=== PATIENT | female | born 1945 | race Caucasian/White ===

== ENCOUNTER 2016-12-23 16:24 | Inpatient (IN) | payer OTHER ==
[~2016-12-23] VITALS: Ht 162.6 cm; Wt 82.5 kg
[~2016-12-23 16:24] MED LIST: ASPEC325 PO; CALC600T9 PO; GLUC15002 PO; HYDR12.55 PO; IBUP-1050 PO; LEVO125T4 PO; LOSA1TAB38 PO; LPT/20 PO; SERT50TA PO; SNQ/25 PO
[2016-12-23] MEDS ORDERED: SODIUM CHLORIDE 0.9% 1000ML 1,000 ML IV STA (16:53)
[2016-12-23] MEDS ORDERED: KETOROLAC TROMETHAMINE 30 MG/ML VIAL IV STA (16:53)
[2016-12-23] MEDS ORDERED: ONDANSETRON INJ 2 MG/ML 2 ML VIAL IV STA (16:53)
[2016-12-23] MEDS ORDERED: ACETAMINOPHEN 500 MG TAB PO STA (16:53)
[2016-12-23] MEDS ORDERED: HYDROmorphone INJ 1 MG/ML SYR IV STA (16:53)
--- NOTE | 2016-12-23 16:56 | EMERGENCY ROOM VISIT NOTE ---
History Report prepared by Vladislav: Kenya Bauer Under the Supervision of: Dr. Colin Hanna M.D. First contact with patient: 16:51 Chief Complaint: ABDOMINAL PAIN Stated Complaint: UPPER ABDOMINAL PAIN Nursing Triage Summary: PT C/O ABDOMINAL PAIN BILATERAL IN NATURE RADIATING INTO HER BACK SINCE LAST EVENING AT 2030. PT WENT TO PCP'S OFFICE FOR THE PAIN, REFERRED HERE FOR FURTHER EVAL. PT RATES PAIN 7/10, CONSISTENT IN NATURE. History of Present Illness The patient is a 71 year old female who presents to the Emergency Room with complaints of constant upper abdominal cramping beginning last night at 10: 30pm. She notes that her abdomen feels distended and the pain has radiated around to her back. She rates her pain as 7/10 in severity. The patient was referred to the ED by her PCP who she saw today. She denies any other symptoms at this time. Source of History: patient Onset: last 10:30 Position: abdomen (upper) Symptom Intensity: 7/10 Quality: cramping Timing: constant Associated Symptoms: + back pain Note: She denies any other symptoms at this time. Review of Systems See HPI for pertinent positives & negatives. A total of 10 systems reviewed and were otherwise negative. Past Medical & Surgical Medical Problems: (1) Hypertension Family History FH: heart disease Hypertension Social History Smoking Status: Never Smoker Smokeless Tobacco Use: No Alcohol Use: occasionally Marital Status: Housing Status: lives with significant other Occupation Status: retired Current/Historical Medications Scheduled Atorvastatin (Atorvastatin Calcium), 20 MG PO Q2D Calcium Carbonate-Vitamin D (Calcium + D), 1 TAB PO BID Doxepin (Sinequan), 50 MG PO HS Kzybgkvdhyl-Hdlpqajxcmi-Vuk C- (Glucosamine 1500 Complex), 1 CAP PO QAM Hydrochlorothiazide (Hydrochlorothiazide), 12.5 MG PO QAM Levothyroxine Sodium (Levothyroxine Sodium), 62.5 MG PO QAM Losartan Potassium (Cozaar), 100 MG PO QAM Sertraline (Zoloft), 50 MG PO HS Scheduled PRN Ibuprofen (Advil), 400-600 MG PO BID PRN for Pain Loratadine (Claritin), 10 MG PO DAILY PRN for ALLERGIC REACTION Triamcinolone Acetonide (Nasal (Nasacort Allergy 24Hr), 1 SPRAY CHUNG DAILY PRN for PRN Allergies Coded Allergies: Aspirin (Verified Allergy, Unknown, 12/23/16) Erythromycin (Verified Allergy, Unknown, AGITATED, 12/23/16) NSAIDs (Verified Allergy, Unknown, AGITATED, 12/23/16) Physical Exam Vital Signs Date Time Temp Pulse Resp B/P Pulse Ox O2 Delivery O2 Flow Rate FiO2 12/23/16 20:15 37.2 80 16 136/65 97 Room Air 12/23/16 18:52 75 16 137/72 99 Room Air 12/23/16 16:29 36.8 83 18 147/84 98 Room Air Physical Exam CONSTITUTIONAL: Mild painful distress. HEENT: No icterus, moist mucous membranes NECK: No meningismus, trachea is midline. CARDIOVASCULAR: Regular rate, normal perfusion RESPIRATORY: Unlabored breathing. Clear to auscultation. GASTROINTESTINAL: Mild epigastric tenderness. GENITOURINARY: No flank tenderness MUSCULOSKELETAL: Full range of motion NEUROLOGIC: No acute gross focal deficits. PSYCHIATRIC: Normal affect SKIN: Normal for ethnicity. Medical Decision & Procedures ER Provider Diagnostic Interpretation: X-ray results as stated below per my interpretation and radiologist interpretation. Other radiology results as stated below per my review and radiologist interpretation. ABDOMINAL ULTRASOUND, RIGHT UPPER QUADRANT HISTORY: epigastric pain radiating to back. COMPARISON: None. FINDINGS: Pancreas: The pancreatic duct is top normal in diameter measuring up to 3 mm. The body of the pancreas is within normal limits. The pancreatic head and temporal are obscured by overlying bowel gas. Liver: Slightly echogenic consistent with fatty change. Gallbladder: Multiple gallstones. The gallbladder wall is thickened up to 6 mm. Trace pericholecystic fluid. There appears to be a nonmobile stone within the neck of the gallbladder. These findings are consistent with acute cholecystitis. CBD: 6 mm. Right kidney: No hydronephrosis. IMPRESSION: 1. Gallbladder wall thickening with multiple gallstones. There appears to be an impacted stone within the neck of the gallbladder. These fibers are consistent with acute cholecystitis. 2. Mild hepatic steatosis. Electronically signed by: Pio Tomlin M.D. 12/23/2016 8:06 PM Dictated Date/Time: 12/23/2016 8:03 PM ABDOMEN AND PELVIS CT WITH IV AND ORAL CONTRAST CT DOSE: 565.16 mGy.cm HISTORY: Epigastric pain radiating to the back. TECHNIQUE: Multiaxial CT images of the abdomen and pelvis were performed following the use of intravenous and oral contrast. COMPARISON STUDY: Abdominal ultrasound 12/23/2016. FINDINGS: The lung bases are clear. A 1.5 cm diverticulum at the second portion of the duodenum. Tiny fat-containing umbilical hernia. Mild hepatic steatosis. The gallbladder is mildly distended. There is gallbladder wall thickening and trace pericholecystic fluid. There is also mild pericholecystic inflammatory change. There are multiple gallstones. These findings are consistent with acute cholecystitis. Normal caliber common bile duct. The pancreas, spleen, adrenal glands, and kidneys are unremarkable. No hydronephrosis. The bladder, uterus, and adnexa are unremarkable. Colonic diverticulosis. No bowel wall thickening or obstruction. Normal appendix. IMPRESSION: 1. Cholelithiasis with associated acute cholecystitis. 2. Colonic diverticulosis. 3. No bowel wall thickening or obstruction. 4. Mild hepatic steatosis. Electronically signed by: Pio Tomlin M.D. 12/23/2016 8:38 PM Dictated Date/Time: 12/23/2016 8:31 PM CHEST ONE VIEW PORTABLE HISTORY: epigastric pain COMPARISON: None. FINDINGS: There are low lung findings. Trace left pleural effusion. No evidence for pulmonary edema. Bibasilar interstitial thickening may be due to vascular crowding. No pneumothorax. The upper lung zones are clear. IMPRESSION: Trace left pleural effusion. Otherwise, no acute process within the chest. Electronically signed by: Pio Tomlin M.D. 12/23/2016 5:35 PM Dictated Date/Time: 12/23/2016 5:34 PM Laboratory Results 12/23/16 18:13 Red Blood Count 4.72, Mean Corpuscular Volume 90.3, Mean Corpuscular Hemoglobin 32.4, Mean Corpuscular Hemoglobin Concent 35.9, Mean Platelet Volume 9.3, Neutrophils (%) (Auto) 82.6, Lymphocytes (%) (Auto) 12.4, Monocytes (%) (Auto) 3.5, Eosinophils (%) (Auto) 0.9, Basophils (%) (Auto) 0.4, Neutrophils # (Auto) 9.44, Lymphocytes # (Auto) 1.42, Monocytes # (Auto) 0.40, Eosinophils # (Auto) 0.10, Basophils # (Auto) 0.04 12/23/16 18:13 Test 12/23/16 18:13 12/23/16 20:54 White Blood Count 11.42 K/uL (4.8-10.8) Red Blood Count 4.72 M/uL (4.2-5.4) Hemoglobin 15.3 g/dL (12.0-16.0) Hematocrit 42.6 % (37-47) Mean Corpuscular Volume 90.3 fL (80-100) Mean Corpuscular Hemoglobin 32.4 pg (25-34) Mean Corpuscular Hemoglobin Concent 35.9 g/dl (32-36) Platelet Count 211 K/uL (130-400) Mean Platelet Volume 9.3 fL (7.4-10.4) Neutrophils (%) (Auto) 82.6 % Lymphocytes (%) (Auto) 12.4 % Monocytes (%) (Auto) 3.5 % Eosinophils (%) (Auto) 0.9 % Basophils (%) (Auto) 0.4 % Neutrophils # (Auto) 9.44 K/uL (1.4-6.5) Lymphocytes # (Auto) 1.42 K/uL (1.2-3.4) Monocytes # (Auto) 0.40 K/uL (0.11-0.59) Eosinophils # (Auto) 0.10 K/uL (0-0.5) Basophils # (Auto) 0.04 K/uL (0-0.2) RDW Standard Deviation 41.3 fL (36.4-46.3) RDW Coefficient of Variation 12.4 % (11.5-14.5) Immature Granulocyte % (Auto) 0.2 % Immature Granulocyte # (Auto) 0.02 K/uL (0.00-0.02) Anion Gap 11.0 mmol/L (3-11) Est Creatinine Clear Calc Drug Dose 53.6 ml/min Estimated GFR () 65.6 Estimated GFR (Non- 56.6 BUN/Creatinine Ratio 15.6 (10-20) Calcium Level 8.9 mg/dl (8.5-10.1) Total Bilirubin 0.5 mg/dl (0.2-1) Direct Bilirubin 0.1 mg/dl (0-0.2) Aspartate Amino Transf (AST/SGOT) 20 U/L (15-37) Alanine Aminotransferase (ALT/SGPT) 29 U/L (12-78) Alkaline Phosphatase 58 U/L (45-117) Troponin I < 0.015 ng/ml (0-0.045) Total Protein 7.5 gm/dl (6.4-8.2) Albumin 3.9 gm/dl (3.4-5.0) Lipase 166 U/L (73-393) Labs reviewed by ED physician. Medications Administered Medications (Trade) Dose Ordered Sig/Cira Route Start Time Stop Time Status Last Admin Dose Admin Acetaminophen 1000 mg 1,000 mg NOW STAT PO 12/23/16 16:53 12/23/16 16:56 DC 12/23/16 17:58 1,000 MG Sodium Chloride (Nss 1000ml) 1,000 ml @ 0 mls/hr Q0M STAT IV 12/23/16 16:53 12/23/16 16:56 DC 12/23/16 16:53 0 MLS/HR ECG Indication: abdominal pain Rate (beats per minute): 79 Rhythm: normal sinus Findings: PAC, no ectopy, other (nonspecific St finding) ED Course 1651: Past medical records reviewed. The patient was evaluated in room C8. A complete history and physical examination was performed. 1652: Dilaudid Inj 1 mg IV, Zofran Inj 4 mg IV, Toradol Inj 15 mg IV, Sodium Chloride 1,000 ml @ 0 mls/hr Wide Open IV, Tylenol Tab 1,000 mg PO. 2029: Discussed the patient's case with Dr. Salazar - Surgery. The patient will be evaluated for further management. 2039: Zosyn Iv 4.5 gm IV. 2049: Discussed the patient's case with Ruthann WADDELL. The patient will be evaluated for further management. Medical Decision Differential diagnoses include but are not limited to; cholecystitis, pancreatitis, AAA, heart disease. 71-year-old presents into the emergency department complaining of 16 hours of upper abdominal pain radiating to her back without any other complaints. On exam she noted mild to moderate epigastric and right upper quadrant tenderness. Right upper quadrant ultrasound revealed multiple gallstones with likely stone at gallbladder neck with findings consistent for cholecystitis. She is comfortable reexamination. Admission arranged to medicine with surgical consultation, Dr. Day. Zosyn IV ordered. Consults Time Called: 2027 Consulting Physician: Dr. Salazar - Surgery Returned Call: [phone] Discussed the patient's case. The patient will be evaluated for further management. Additional Consults: Time Called: 2049 Consulted Physician: Ruthann WADDELL Returned Call: [phone] Additional Comments: Discussed the patient's case. The patient will be evaluated for further management. Impression Primary Impression: Cholecystitis Scribe Attestation The scribe's documentation has been prepared under my direction and personally reviewed by me in its entirety. I confirm that the note above accurately reflects all work, treatment, procedures, and medical decision making performed by me. Departure Information Dispostion Being Evaluated By Hospitalist Referrals Fernie Tejada III, M.D. (PCP)
[2016-12-23] MEDS ORDERED: OPTIRAY 320 IV PRN (17:15)
--- NOTE | 2016-12-23 17:36 | DIAGNOSTIC IMAGING REPORT ---
CHEST ONE VIEW PORTABLE HISTORY: epigastric pain COMPARISON: None. FINDINGS: There are low lung findings. Trace left pleural effusion. No evidence for pulmonary edema. Bibasilar interstitial thickening may be due to vascular crowding. No pneumothorax. The upper lung zones are clear. IMPRESSION: Trace left pleural effusion. Otherwise, no acute process within the chest. Electronically signed by: Pio Tomlin M.D. 12/23/2016 5:35 PM Dictated Date/Time: 12/23/2016 5:34 PM
[2016-12-23] MEDS ORDERED: TRIA1SPR4 NAE (18:21)
[2016-12-23] MEDS ORDERED: CLR10 PO (18:21)
[2016-12-23 18:32] LABS: BASO % 0.4 %; BASO ABS # 0.04 K/uL (0-0.2); COMPLETE YES; EOS % 0.9 %; HEMATOCRIT 42.6 % (37-47); IG% 0.2 %; LYMPH % 12.4 %; LYMPH ABS # 1.42 K/uL (1.2-3.4); MEAN CELL VOLUME 90.3 fL (80-100); MEAN CORPUSCULAR HEMOGLOBIN 32.4 pg (25-34); MEAN CORPUSCULAR HGB CONC 35.9 g/dl (32-36); MEAN PLATELET VOLUME 9.3 fL (7.4-10.4); MONO % 3.5 %; NEUT % 82.6 %; PLATELET COUNT 211 K/uL (130-400); RED BLOOD COUNT 4.72 M/uL (4.2-5.4); WHITE BLOOD COUNT 11.42 K/uL (4.8-10.8)
[2016-12-23 18:53] LABS: ALT/SGPT 29 U/L (12-78); BLOOD UREA NITROGEN 16 mg/dl (7-18); BUN/CREATININE RATIO 15.6 (10-20); CALCIUM 8.9 mg/dl (8.5-10.1); CARBON DIOXIDE 27 mmol/L (21-32); CHLORIDE 102 mmol/L (98-107); GLUCOSE 174 mg/dl (70-99); POTASSIUM 3.4 mmol/L (3.5-5.1); SODIUM 140 mmol/L (136-145)
[2016-12-23 18:58] LABS: ALKALINE PHOSPHATASE 58 U/L (45-117); AST/SGOT 20 U/L (15-37)
--- NOTE | 2016-12-23 20:07 | DIAGNOSTIC IMAGING REPORT ---
ABDOMINAL ULTRASOUND, RIGHT UPPER QUADRANT HISTORY: epigastric pain radiating to back. COMPARISON: None. FINDINGS: Pancreas: The pancreatic duct is top normal in diameter measuring up to 3 mm. The body of the pancreas is within normal limits. The pancreatic head and temporal are obscured by overlying bowel gas. Liver: Slightly echogenic consistent with fatty change. Gallbladder: Multiple gallstones. The gallbladder wall is thickened up to 6 mm. Trace pericholecystic fluid. There appears to be a nonmobile stone within the neck of the gallbladder. These findings are consistent with acute cholecystitis. CBD: 6 mm. Right kidney: No hydronephrosis. IMPRESSION: 1. Gallbladder wall thickening with multiple gallstones. There appears to be an impacted stone within the neck of the gallbladder. These fibers are consistent with acute cholecystitis. 2. Mild hepatic steatosis. Electronically signed by: Pio Tomlin M.D. 12/23/2016 8:06 PM Dictated Date/Time: 12/23/2016 8:03 PM
--- NOTE | 2016-12-23 20:39 | DIAGNOSTIC IMAGING REPORT ---
ABDOMEN AND PELVIS CT WITH IV AND ORAL CONTRAST CT DOSE: 565.16 mGy.cm HISTORY: Epigastric pain radiating to the back. TECHNIQUE: Multiaxial CT images of the abdomen and pelvis were performed following the use of intravenous and oral contrast. COMPARISON STUDY: Abdominal ultrasound 12/23/2016. FINDINGS: The lung bases are clear. A 1.5 cm diverticulum at the second portion of the duodenum. Tiny fat-containing umbilical hernia. Mild hepatic steatosis. The gallbladder is mildly distended. There is gallbladder wall thickening and trace pericholecystic fluid. There is also mild pericholecystic inflammatory change. There are multiple gallstones. These findings are consistent with acute cholecystitis. Normal caliber common bile duct. The pancreas, spleen, adrenal glands, and kidneys are unremarkable. No hydronephrosis. The bladder, uterus, and adnexa are unremarkable. Colonic diverticulosis. No bowel wall thickening or obstruction. Normal appendix. IMPRESSION: 1. Cholelithiasis with associated acute cholecystitis. 2. Colonic diverticulosis. 3. No bowel wall thickening or obstruction. 4. Mild hepatic steatosis. Electronically signed by: Pio Tomlin M.D. 12/23/2016 8:38 PM Dictated Date/Time: 12/23/2016 8:31 PM
[2016-12-23] MEDS ORDERED: PIPERACILLIN/TAZOBACTAM 4.5 GM/100ML D5W IV STA (20:40)
[2016-12-23] MEDS ORDERED: POTASSIUM CHLR 10 MEQ / WTR 10 MEQ in PREMIXED WATER 100 ML IV STA (21:11)
[2016-12-23 21:12] LABS: PROTHROMBIN TIME (PATIENT) 10.9 SECONDS (9.0-12.0)
[2016-12-23] MEDS ORDERED: OMEP20CA9 PO (21:18)
[2016-12-23] MEDS ORDERED: ACETAMINOPHEN 325 MG TAB PO PRN (21:30)
[2016-12-23] MEDS ORDERED: MoRPHine SULFATE 2 MG/ML CARP IV PRN ×3 (21:30)
[2016-12-23] MEDS ORDERED: ONDANSETRON INJ 2 MG/ML 2 ML VIAL IV PRN (21:30)
--- NOTE | 2016-12-23 21:39 | History and Physical ---
History & Physical Date & Time of Service: Dec 23, 2016 at 21:18 Chief Complaint: Upper Abdominal Pain Primary Care Physician: Fernie Tejada III, M.D. History of Present Illness Source: patient, clinic records This is a 71 year old female with PMH of HTN, dyslipidemia, hypothyroidism, CKD stage III, fibromyalgia, who was sent to the ED from Dr. Tejada's office for abdominal pain. Patient states yesterday she had soreness in her back during the day. Heat application did not help. Then at 10:30 pm yesterday she had sudden onset of abdominal pain. She describes cramping across the right and left upper quadrants with band like radiation to her back. She states pain was constant. She tried omeprazole with no relief. Patient was seen by Dr. Tejada in the afternoon and was sent to the ER. She last ate (cereal) at 8:30 am but had no appetite after that. Her mouth is feeling dry. Her pain was treated with acetaminophen in ER and is now controlled. She reports a normal BM this morning. he denies fevers, chills, cough, chest pain, SOB, nausea, vomiting, diarrhea, dysuria, frequency. No hx of abdominal surgery. Past Medical/Surgical History Medical Problems: (1) CKD (chronic kidney disease), stage III Status: Chronic (2) Fibromyalgia Status: Chronic (3) Hyperlipidemia Status: Chronic (4) Hypertension Status: Chronic (5) Hypothyroidism Status: Chronic Surgical Problems: (1) H/O laparoscopy Status: Chronic (2) History of rectal surgery Status: Chronic (3) S/P nasal surgery Status: Chronic Family History FH: heart disease Hypertension Social History Smoking Status: Never Smoker Alcohol Use: socially Drug Use: none Marital Status: Housing status: lives with significant other Occupational Status: retired Multi-Drug Resistant Organisms History of MDRO: No Allergies Coded Allergies: Aspirin (Verified Allergy, Unknown, 12/23/16) Erythromycin (Verified Allergy, Unknown, AGITATED, 12/23/16) NSAIDs (Verified Allergy, Unknown, AGITATED, 12/23/16) Home Medications Scheduled Atorvastatin (Atorvastatin Calcium), 20 MG PO Q2D Calcium Carbonate-Vitamin D (Calcium + D), 1 TAB PO BID Doxepin (Sinequan), 50 MG PO HS Hukutqfoiji-Zqdcgnzqsrj-Bnl C- (Glucosamine 1500 Complex), 1 CAP PO QAM Hydrochlorothiazide (Hydrochlorothiazide), 12.5 MG PO QAM Levothyroxine Sodium (Levothyroxine Sodium), 62.5 MG PO QAM Losartan Potassium (Cozaar), 100 MG PO QAM Sertraline (Zoloft), 50 MG PO HS Scheduled PRN Ibuprofen (Advil), 400-600 MG PO BID PRN for Pain Loratadine (Claritin), 10 MG PO DAILY PRN for ALLERGIC REACTION Omeprazole (Prilosec), 20 MG PO DAILY PRN for Dyspepsia Triamcinolone Acetonide (Nasal (Nasacort Allergy 24Hr), 2 SPRAY CHUNG DAILY PRN for Nasal Congestion Review of Systems Constitutional: No chills, No fever Eyes: No worsening of vision ENT: No nasal symptoms Respiratory: No cough Cardiovascular: No chest pain Abdomen: + pain, + problem reported (decreased appetite), No diarrhea, No nausea, No vomiting Musculoskeletal: + problem reported (back ache) Genitourinary - Female: No dysuria, No urinary frequency Neurologic: No problem reported (no dizziness) Psychiatric: No depression symptoms Physical Exam Vital Signs Date Time Temp Pulse Resp B/P Pulse Ox O2 Delivery O2 Flow Rate FiO2 12/23/16 20:15 37.2 80 16 136/65 97 Room Air 12/23/16 18:52 75 16 137/72 99 Room Air 12/23/16 16:29 36.8 83 18 147/84 98 Room Air General Appearance: no apparent distress, + obese, + pertinent finding ( pleasant alert 71 year old female, lying in bed) Head: normocephalic, atraumatic Eyes: normal inspection, PERRL, EOMI ENT: hearing grossly normal, pharynx normal Neck: supple, trachea midline Respiratory/Chest: lungs clear, normal breath sounds, no respiratory distress, no accessory muscle use Cardiovascular: regular rate, rhythm, no murmur Abdomen/GI: normal bowel sounds, soft, + pertinent finding (tender in RUQ, Nixon's sign positive) Extremities/Musculoskelatal: normal inspection, no pedal edema Neurologic/Psych: alert, normal mood/affect, oriented x 3, + pertinent finding (grossly nonfocal ) Skin: normal color, warm/dry Diagnostics Laboratory Results Results Past 24 Hours Test 12/23/16 18:13 12/23/16 20:54 Range/Units White Blood Count 11.42 4.8-10.8 K/uL Red Blood Count 4.72 4.2-5.4 M/uL Hemoglobin 15.3 12.0-16.0 g/dL Hematocrit 42.6 37-47 % Mean Corpuscular Volume 90.3 80-100 fL Mean Corpuscular Hemoglobin 32.4 25-34 pg Mean Corpuscular Hemoglobin Concent 35.9 32-36 g/dl Platelet Count 211 130-400 K/uL Mean Platelet Volume 9.3 7.4-10.4 fL Neutrophils (%) (Auto) 82.6 % Lymphocytes (%) (Auto) 12.4 % Monocytes (%) (Auto) 3.5 % Eosinophils (%) (Auto) 0.9 % Basophils (%) (Auto) 0.4 % Neutrophils # (Auto) 9.44 1.4-6.5 K/uL Lymphocytes # (Auto) 1.42 1.2-3.4 K/uL Monocytes # (Auto) 0.40 0.11-0.59 K/uL Eosinophils # (Auto) 0.10 0-0.5 K/uL Basophils # (Auto) 0.04 0-0.2 K/uL RDW Standard Deviation 41.3 36.4-46.3 fL RDW Coefficient of Variation 12.4 11.5-14.5 % Immature Granulocyte % (Auto) 0.2 % Immature Granulocyte # (Auto) 0.02 0.00-0.02 K/uL Sodium Level 140 136-145 mmol/L Potassium Level 3.4 3.5-5.1 mmol/L Chloride Level 102 98-107 mmol/L Carbon Dioxide Level 27 21-32 mmol/L Anion Gap 11.0 3-11 mmol/L Blood Urea Nitrogen 16 7-18 mg/dl Creatinine 1.00 0.60-1.20 mg/dl Est Creatinine Clear Calc Drug Dose 53.6 ml/min Estimated GFR () 65.6 Estimated GFR (Non- 56.6 BUN/Creatinine Ratio 15.6 10-20 Random Glucose 174 70-99 mg/dl Calcium Level 8.9 8.5-10.1 mg/dl Total Bilirubin 0.5 0.2-1 mg/dl Direct Bilirubin 0.1 0-0.2 mg/dl Aspartate Amino Transf (AST/SGOT) 20 15-37 U/L Alanine Aminotransferase (ALT/SGPT) 29 12-78 U/L Alkaline Phosphatase 58 45-117 U/L Troponin I < 0.015 0-0.045 ng/ml Total Protein 7.5 6.4-8.2 gm/dl Albumin 3.9 3.4-5.0 gm/dl Lipase 166 73-393 U/L Prothrombin Time 10.9 9.0-12.0 SECONDS Prothromb Time International Ratio 1.0 0.9-1.1 Activated Partial Thromboplast Time 25.0 21.0-31.0 SECONDS Partial Thromboplastin Ratio 1.0 Diagnostic Radiology ABDOMINAL ULTRASOUND, RIGHT UPPER QUADRANT HISTORY: epigastric pain radiating to back. COMPARISON: None. FINDINGS: Pancreas: The pancreatic duct is top normal in diameter measuring up to 3 mm. The body of the pancreas is within normal limits. The pancreatic head and temporal are obscured by overlying bowel gas. Liver: Slightly echogenic consistent with fatty change. Gallbladder: Multiple gallstones. The gallbladder wall is thickened up to 6 mm. Trace pericholecystic fluid. There appears to be a nonmobile stone within the neck of the gallbladder. These findings are consistent with acute cholecystitis. CBD: 6 mm. Right kidney: No hydronephrosis. IMPRESSION: 1. Gallbladder wall thickening with multiple gallstones. There appears to be an impacted stone within the neck of the gallbladder. These fibers are consistent with acute cholecystitis. ABDOMEN AND PELVIS CT WITH IV AND ORAL CONTRAST CT DOSE: 565.16 mGy.cm HISTORY: Epigastric pain radiating to the back. TECHNIQUE: Multiaxial CT images of the abdomen and pelvis were performed following the use of intravenous and oral contrast. COMPARISON STUDY: Abdominal ultrasound 12/23/2016. FINDINGS: The lung bases are clear. A 1.5 cm diverticulum at the second portion of the duodenum. Tiny fat-containing umbilical hernia. Mild hepatic steatosis. The gallbladder is mildly distended. There is gallbladder wall thickening and trace pericholecystic fluid. There is also mild pericholecystic inflammatory change. There are multiple gallstones. These findings are consistent with acute cholecystitis. Normal caliber common bile duct. The pancreas, spleen, adrenal glands, and kidneys are unremarkable. No hydronephrosis. The bladder, uterus, and adnexa are unremarkable. Colonic diverticulosis. No bowel wall thickening or obstruction. Normal appendix. IMPRESSION: 1. Cholelithiasis with associated acute cholecystitis. 2. Colonic diverticulosis. 3. No bowel wall thickening or obstruction. 4. Mild hepatic steatosis. CHEST ONE VIEW PORTABLE HISTORY: epigastric pain COMPARISON: None. FINDINGS: There are low lung findings. Trace left pleural effusion. No evidence for pulmonary edema. Bibasilar interstitial thickening may be due to vascular crowding. No pneumothorax. The upper lung zones are clear. IMPRESSION: Trace left pleural effusion. Otherwise, no acute process within the chest. EKG sinus rhythm with PACs, no ST or T wave abnormalities Impression Assessment and Plan ACUTE CHOLECYSTITIS WBC = 11.4; HD stable with no tachycardia or hypotension Gallbladder US shows acute cholecystitis with multiple gallstones with impacted stone in gallbladder neck CT a/p- Cholelithiasis with associated acute cholecystitis, Colonic diverticulosis, No bowel wall thickening or obstruction, Mild hepatic steatosis. Given dose of Zosyn in ER Will continue antibiotics with Cipro and Flagyl NPO except sips/ ice chips IV fluids Pain control with PRN acetaminophen, PRN morphine Consult general surgery- attending has discussed case with Dr. Salazar; patient will be seen tonight and plan for OR tomorrow HYPOKALEMIA Replace and monitor HYPERTENSION BP is stable Hold losartan and HCTZ Resume when taking PO postoperatively HYPERLIPIDEMIA Hold statin until resumes PO postoperatively HYPOTHYROIDISM Hold levothyroxine for now FIBROMYALGIA Hold PO meds for now CKD STAGE III Creatinine is stable Monitor renal function Avoid nephrotoxins DVT PROPHYLAXIS SCD's re procedure in am DISPOSITION Follows with Dr. Tejada for primary care Patient seen in collaboration with Dr. Pfeiffer. Please see her addendum. Patient will be followed by Dr. Nunez tomorrow. ATTENDING NOTE : pt seen and examined, care co ordinated with Ruthann Don PA-C 71 yo F presented with sudden onset of lower abdominal pain started last night , ongoing , constant with radiation to back no nausea symptoms no fever , no diarrhea seen by PCP today sent to ER for evaluation Gallbladder US shows acute cholecystitis with multiple gallstones with impacted stone in gallbladder neck CT a/p- Cholelithiasis with associated acute cholecystitis, Colonic diverticulosis, No bowel wall thickening or obstruction, Mild hepatic steatosis. P/E: gen : no apparent distress HEENT: sclera non icteric , PERRLA/EOMI HT; regular S1/S2 Lungs: CTA abdomen; soft , + Nixon's sign , bowel sound active Ext: no rash deformity Neuro: no focal deficit A/P : Acute cholecystitis : no evidence of sepsis , Images of abdomen as above mild leukocytosis, no fever NPO IVF , Empiric Abx with Cipro /Flagyl given dose of Zosyn in ED Surgery updated case D/w Dr Salazar -scheduled for Cholecystectomy tomorrow -possible laparoscopic Pt is medically stable for the procedure CKD stage 3 : cr at baseline IV fluids monitor PRP rest of the problem list as outlined by Ruthann Don PA-c VTE Prophylaxis VTE Risk Assessment Done? Y/N: Yes Risk Level: Moderate
[2016-12-23 22:00] VITALS: BP 154/85; PULSE 66; TEMP 36.8; O2SAT 99
[2016-12-23] MEDS: NSS + 20MEQ KCL 1000ML 1,000 ML IV SCH (22:30)
--- NOTE | 2016-12-23 22:59 | Pre-Operative Consultation ---
History General Date of Service: Dec 23, 2016. HPI HPI: The patient is a 71 year old female being seen for acute cholecystitis. She was admitted with complaints of constant upper abdominal cramping beginning last night at 10:30pm. She notes that her abdomen feels distended and the pain has radiated around to her back. She rates her pain as 7/10 in severity. No fever or chills. She has never had pain like this previously but it is mostly relieved at this point.. Historian: patient Procedure Urgency: Acute Risk Assessment Daily beta bria use?: No Problem List Medical Problems: (1) Cholecystitis Status: Acute Medical & Surgical History Past Medical History: high cholesterol, hypertension, hypothyroidism Past Surgical History: other (laparoscopic ovarian cystectomy) Family History Family History: no pertinent family hx Social History Hx Tobacco Use In Past Year?: No Smoking Status: Never Smoker Alcohol: occasionally Drug Use: none Marital status: Housing status: lives with significant other Occupation status: retired Allergies Allergies: Coded Allergies: Aspirin (Verified Allergy, Unknown, 12/23/16) Erythromycin (Verified Allergy, Unknown, AGITATED, 12/23/16) NSAIDs (Verified Allergy, Unknown, AGITATED, 12/23/16) Medications Current Inpatient Medications Current Inpatient Medications Medications (Trade) Dose Ordered Sig/Cira Route Start Time Stop Time Status Last Admin Dose Admin Ioversol (Optiray 320) 111 ml UD PRN IV 12/23/16 17:15 12/27/16 17:14 Acetaminophen (Tylenol Tab) 650 mg Q4H PRN PO 12/23/16 21:30 01/22/17 21:29 Ondansetron HCl 4 mg 4 mg Q6H PRN IV 12/23/16 21:30 01/22/17 21:29 Potassium Chloride/Sodium Chloride 1,000 ml @ 100 mls/hr Q10H IV 12/23/16 22:30 01/22/17 22:29 Ciprofloxacin/ Dextrose 400 mg/ Prmx 200 ml @ 100 mls/hr Q12H IV 12/24/16 00:00 01/03/17 00:00 Metronidazole/Prmx (Flagyl / Nss/ Premixed Nss) 100 ml @ 100 mls/hr Q8H IV 12/23/16 22:30 01/02/17 22:29 Morphine Sulfate (MoRPHine SULFATE INJ) 1 mg Q3HWA PRN IV 12/23/16 21:30 01/06/17 21:29 Morphine Sulfate 2 mg 2 mg Q3HWA PRN IV 12/23/16 21:30 01/06/17 21:29 Pantoprazole Sodium/Syringe (Protonix Inj/ Syringe) 10 ml @ 5 mls/min DAILY@11 IV 12/24/16 11:00 01/23/17 10:59 Review of Systems Review of Systems Constitutional: denies chills, denies diaphoresis, denies fever, denies weakness Eyes: reports: no symptoms ENT: reports: no symptoms reported Cardiovascular: denies: chest pain, chest pressure, chest tightness, palpitations, syncope Respiratory: denies: cough, short of breath, sputum production, stridor Gastrointestinal: abdominal pain, denies constipation, diarrhea, nausea, denies vomiting Genitourinary - Female: reports: no symptoms Musculoskeletal: back pain, denies joint pain, denies joint swelling, denies muscle pain Integumentary: denies change in color, denies change in hair/nails, denies dryness, denies lesions, denies lumps, denies rash Neurologic: reports: no symptoms Psychiatric: reports: no symptoms Endocrine: denies: cold intolerance, goiter, hair changes, heat intolerance, polyuria Hematologic / Lymphatic: denies: anemia, easy bleeding, easy bruising Allergic / Immunologic: denies: frequent infections Physical Exam Physical Exam General Appearance: + WD/WN, No distress Ears, Nose, Throat: + normal ENT inspection Neck: No lymphadenophy, No stiffness, No tenderness, No tracheal deviation Respiratory: No decreased breath sounds, No rales, No rhonchi, No stridor, No wheezing Cardiovascular: No bradycardia, No diastolic murmur, No gallop/S3, No gallop/S4 , No systolic murmur, No tachycardia Abdomen: + tenderness, No abnormal bowel sounds, No distension, No guarding, No hernia, No mass, No organomegaly, No rebound Extremities: No calf tenderness, No deformity, No edema, No inflammation, No swelling Neurologic/Psychiatric: No disorientation, No motor deficit/weakness, No sensory deficit Skin Characteristics: No diaphoresis, No jaundice, No pallor, No rash Lymphatic: No abnormal adenopathy Diagnostics Labs Labs Results Past 24 Hours Test 12/23/16 18:13 12/23/16 20:54 Range/Units White Blood Count 11.42 4.8-10.8 K/uL Red Blood Count 4.72 4.2-5.4 M/uL Hemoglobin 15.3 12.0-16.0 g/dL Hematocrit 42.6 37-47 % Mean Corpuscular Volume 90.3 80-100 fL Mean Corpuscular Hemoglobin 32.4 25-34 pg Mean Corpuscular Hemoglobin Concent 35.9 32-36 g/dl Platelet Count 211 130-400 K/uL Mean Platelet Volume 9.3 7.4-10.4 fL Neutrophils (%) (Auto) 82.6 % Lymphocytes (%) (Auto) 12.4 % Monocytes (%) (Auto) 3.5 % Eosinophils (%) (Auto) 0.9 % Basophils (%) (Auto) 0.4 % Neutrophils # (Auto) 9.44 1.4-6.5 K/uL Lymphocytes # (Auto) 1.42 1.2-3.4 K/uL Monocytes # (Auto) 0.40 0.11-0.59 K/uL Eosinophils # (Auto) 0.10 0-0.5 K/uL Basophils # (Auto) 0.04 0-0.2 K/uL RDW Standard Deviation 41.3 36.4-46.3 fL RDW Coefficient of Variation 12.4 11.5-14.5 % Immature Granulocyte % (Auto) 0.2 % Immature Granulocyte # (Auto) 0.02 0.00-0.02 K/uL Sodium Level 140 136-145 mmol/L Potassium Level 3.4 3.5-5.1 mmol/L Chloride Level 102 98-107 mmol/L Carbon Dioxide Level 27 21-32 mmol/L Anion Gap 11.0 3-11 mmol/L Blood Urea Nitrogen 16 7-18 mg/dl Creatinine 1.00 0.60-1.20 mg/dl Est Creatinine Clear Calc Drug Dose 53.6 ml/min Estimated GFR () 65.6 Estimated GFR (Non- 56.6 BUN/Creatinine Ratio 15.6 10-20 Random Glucose 174 70-99 mg/dl Calcium Level 8.9 8.5-10.1 mg/dl Total Bilirubin 0.5 0.2-1 mg/dl Direct Bilirubin 0.1 0-0.2 mg/dl Aspartate Amino Transf (AST/SGOT) 20 15-37 U/L Alanine Aminotransferase (ALT/SGPT) 29 12-78 U/L Alkaline Phosphatase 58 45-117 U/L Troponin I < 0.015 0-0.045 ng/ml Total Protein 7.5 6.4-8.2 gm/dl Albumin 3.9 3.4-5.0 gm/dl Lipase 166 73-393 U/L Prothrombin Time 10.9 9.0-12.0 SECONDS Prothromb Time International Ratio 1.0 0.9-1.1 Activated Partial Thromboplast Time 25.0 21.0-31.0 SECONDS Partial Thromboplastin Ratio 1.0 Lab Interpretation Lab Interpretation: labs were reviewed Diagnostic Radiology Diagnostic Radiology ABDOMINAL ULTRASOUND, RIGHT UPPER QUADRANT HISTORY: epigastric pain radiating to back. COMPARISON: None. FINDINGS: Pancreas: The pancreatic duct is top normal in diameter measuring up to 3 mm. The body of the pancreas is within normal limits. The pancreatic head and temporal are obscured by overlying bowel gas. Liver: Slightly echogenic consistent with fatty change. Gallbladder: Multiple gallstones. The gallbladder wall is thickened up to 6 mm. Trace pericholecystic fluid. There appears to be a nonmobile stone within the neck of the gallbladder. These findings are consistent with acute cholecystitis. CBD: 6 mm. Right kidney: No hydronephrosis. IMPRESSION: 1. Gallbladder wall thickening with multiple gallstones. There appears to be an impacted stone within the neck of the gallbladder. These fibers are consistent with acute cholecystitis. Impression Assessment and Plan Assessment and Plan Acute cholecystitis -IV abx -IVF -normal LFTs -medical clearance -to OR in AM
[2016-12-24] VITALS (8 sets, daily range): BP systolic 121–162; BP diastolic 68–83; PULSE 64–87; TEMP 36.5–36.8; O2SAT 92–98; Ht 162.6 cm; Wt 82.5 kg
[2016-12-24] MEDS: METRONIDAZOLE / NSS 500 MG in PREMIXED NSS 100 ML IV SCH ×4 (00:29→22:24)
[2016-12-24] MEDS: CIPROFLOXACIN / D5W 400 MG in PREMIXED IN D5W 200 ML IV SCH ×2 (00:38→11:14)
[2016-12-24] MEDS ORDERED: CEFAZOLIN 2000 MG/60 ML D5W 60 ML IV SCH (06:00)
--- NOTE | 2016-12-24 06:21 | Surgery Progress Note ---
Surgery Progress Note Date of Service Dec 24, 2016. Subjective + complaints (pain much improved), + diet (NPO), + feeling well, No nausea, No vomiting Objective Vital Signs: Date Time Temp Pulse Resp B/P Pulse Ox O2 Delivery O2 Flow Rate FiO2 12/24/16 00:30 Room Air 12/24/16 00:30 Room Air 12/23/16 22:00 36.8 66 18 154/85 99 Room Air 12/23/16 21:35 78 16 130/75 98 12/23/16 20:15 37.2 80 16 136/65 97 Room Air 12/23/16 18:52 75 16 137/72 99 Room Air 12/23/16 16:29 36.8 83 18 147/84 98 Room Air General Appearance: WD/WN, no apparent distress Head: normocephalic, atraumatic Neck: supple, trachea midline Respiratory/Chest: lungs clear Cardiovascular: regular rate, rhythm Abdomen: normal bowel sounds, non distended, soft, + tenderness (mild) Extremities: non-tender, no pedal edema Laboratory Results: Results Past 24 Hours Test 12/23/16 18:13 12/23/16 20:54 12/24/16 04:44 Range/Units White Blood Count 11.42 4.8-10.8 K/uL Red Blood Count 4.72 4.2-5.4 M/uL Hemoglobin 15.3 12.0-16.0 g/dL Hematocrit 42.6 37-47 % Mean Corpuscular Volume 90.3 80-100 fL Mean Corpuscular Hemoglobin 32.4 25-34 pg Mean Corpuscular Hemoglobin Concent 35.9 32-36 g/dl Platelet Count 211 130-400 K/uL Mean Platelet Volume 9.3 7.4-10.4 fL Neutrophils (%) (Auto) 82.6 % Lymphocytes (%) (Auto) 12.4 % Monocytes (%) (Auto) 3.5 % Eosinophils (%) (Auto) 0.9 % Basophils (%) (Auto) 0.4 % Neutrophils # (Auto) 9.44 1.4-6.5 K/uL Lymphocytes # (Auto) 1.42 1.2-3.4 K/uL Monocytes # (Auto) 0.40 0.11-0.59 K/uL Eosinophils # (Auto) 0.10 0-0.5 K/uL Basophils # (Auto) 0.04 0-0.2 K/uL RDW Standard Deviation 41.3 36.4-46.3 fL RDW Coefficient of Variation 12.4 11.5-14.5 % Immature Granulocyte % (Auto) 0.2 % Immature Granulocyte # (Auto) 0.02 0.00-0.02 K/uL Sodium Level 140 136-145 mmol/L Potassium Level 3.4 3.5-5.1 mmol/L Chloride Level 102 98-107 mmol/L Carbon Dioxide Level 27 21-32 mmol/L Anion Gap 11.0 3-11 mmol/L Blood Urea Nitrogen 16 7-18 mg/dl Creatinine 1.00 0.60-1.20 mg/dl Est Creatinine Clear Calc Drug Dose 53.6 ml/min Estimated GFR () 65.6 Estimated GFR (Non- 56.6 BUN/Creatinine Ratio 15.6 10-20 Random Glucose 174 70-99 mg/dl Calcium Level 8.9 8.5-10.1 mg/dl Total Bilirubin 0.5 0.2-1 mg/dl Direct Bilirubin 0.1 0-0.2 mg/dl Aspartate Amino Transf (AST/SGOT) 20 15-37 U/L Alanine Aminotransferase (ALT/SGPT) 29 12-78 U/L Alkaline Phosphatase 58 45-117 U/L Troponin I < 0.015 0-0.045 ng/ml Total Protein 7.5 6.4-8.2 gm/dl Albumin 3.9 3.4-5.0 gm/dl Lipase 166 73-393 U/L Prothrombin Time 10.9 9.0-12.0 SECONDS Prothromb Time International Ratio 1.0 0.9-1.1 Activated Partial Thromboplast Time 25.0 21.0-31.0 SECONDS Partial Thromboplastin Ratio 1.0 Assessment & Plan Acute cholecystitis -IV abx -medically cleared -erik boateng this AM -consent on chart/risks explained
[2016-12-24 08:12] LABS: HEMATOCRIT 37.3 % (37-47); MEAN CELL VOLUME 90.5 fL (80-100); MEAN CORPUSCULAR HEMOGLOBIN 31.3 pg (25-34); MEAN CORPUSCULAR HGB CONC 34.6 g/dl (32-36); MEAN PLATELET VOLUME 9.4 fL (7.4-10.4); PLATELET COUNT 192 K/uL (130-400); RED BLOOD COUNT 4.12 M/uL (4.2-5.4); WHITE BLOOD COUNT 6.86 K/uL (4.8-10.8)
[2016-12-24 08:41] LABS: BUN/CREATININE RATIO 12.6 (10-20); CALCIUM 8.3 mg/dl (8.5-10.1); CREATININE 0.9 mg/dl (0.60-1.20); POTASSIUM 3.9 mmol/L (3.5-5.1)
[2016-12-24] MEDS: NSS + 20MEQ KCL 1000ML 1,000 ML IV SCH ×2 (09:10→19:57)
[2016-12-24] MEDS ORDERED: PANTOprazole INJ 40 MG in SYRINGE 0 ML IV SCH (11:00)
[2016-12-24] MEDS ORDERED: PROPOFOL IV EMULSION 10 MG/ML 20 ML VIAL IV ONE (11:14)
[2016-12-24] MEDS ORDERED: ONDANSETRON INJ 2 MG/ML 2 ML VIAL ONE (11:14)
[2016-12-24] MEDS ORDERED: FENTANYL CITRATE INJ 50 MCG/1 ML 2 ML VIAL ONE (11:14)
[2016-12-24] MEDS ORDERED: MIDAZOLAM HCL 1 MG/ML 2ML VIAL ONE (11:14)
[2016-12-24] MEDS ORDERED: NEOSTIGMINE METHYLSULFATE 5 MG/5 ML SYR ONE (11:14)
[2016-12-24] MEDS ORDERED: LIDOCAINE HCL 2% 2 ML VIAL (20MG/ML) ONE (11:14)
[2016-12-24] MEDS ORDERED: GLYCOPYRROLATE INJ 0.2 MG/ML VIAL ONE (11:14)
[2016-12-24] MEDS ORDERED: ROCURONIUM BROMIDE 10 MG/ML 5 ML VIAL ONE (11:14)
[2016-12-24] MEDS ORDERED: DEXAMETHASONE SOD INJ 4 MG/ML VIAL ONE (11:14)
[2016-12-24] MEDS ORDERED: ATROPINE SULFATE 0.1 MG/ML 5ML SYR IV PRN (11:30)
[2016-12-24] MEDS ORDERED: EpHEDrine SULFATE INJ 50 MG/ML AMP IV PRN (11:30)
[2016-12-24] MEDS ORDERED: ONDANSETRON INJ 2 MG/ML 2 ML VIAL IV PRN ×2 (11:30→14:30)
[2016-12-24] MEDS ORDERED: PHENYLEPHRINE 100MCG/ML 5ML SYR IV PRN (11:30)
[2016-12-24] MEDS ORDERED: HYDROmorphone INJ 2 MG/ML SYR/VIAL IV PRN (11:30)
[2016-12-24] MEDS ORDERED: PHENYLEPHRINE 100MCG/ML 5ML SYR ONE (13:45)
[2016-12-24] MEDS ORDERED: BUPIVACAINE/EPINEPHRINE 0.5% MPF 1:200,000 30 ML VIAL INJ ONE (14:17)
--- NOTE | 2016-12-24 14:18 | [facility] Post Operative Brief Note ---
Immediate Operative Summary Operative Date Dec 24, 2016. Pre-Operative Diagnosis Acute cholecystitis Post-Operative Diagnosis Same as preoperative diagnosis Procedure(s) Performed Laparoscopic Cholecystectomy Surgeon Dr. Denny Salazar Classification Clerk Surgeon(s) None Estimated Blood Loss 20 mL Findings Acute inflammation Specimens Permanent specimens A: Gallbladder and contents Drains none Anesthesia GETA w/marcaine Complication(s) None Disposition Recovery Room / PACU
[2016-12-24] MEDS ORDERED: OXYCODONE/ACETAMINOPHEN 5-325 TAB PO PRN (14:30)
--- NOTE | 2016-12-24 14:36 | OPERATIVE REPORT ---
DATE OF OPERATION: 12/24/2016 PREOPERATIVE DIAGNOSIS: Acute cholecystitis. POSTOPERATIVE DIAGNOSIS: Same. PROCEDURE PERFORMED: Laparoscopic cholecystectomy. SURGEON: Dr. Denny Salazar. CON[employer]ODUCTS DISPATCHER: None. ANESTHESIA: General endotracheal with 0.5% Marcaine with epinephrine local. ESTIMATED BLOOD LOSS: 20 mL. DRAINS: None. COMPLICATIONS: None. SPECIMENS: Gallbladder sent to pathology. INDICATION FOR PROCEDURE: This is a 71-year-old female admitted to the ER yesterday with acute cholecystitis by ultrasound and white count. She was placed on IV antibiotics, was admitted to medicine, underwent workup to clear her for surgery and she presents today for laparoscopic cholecystectomy. We went over all the risks in detail including open procedure, common bile duct injury, retained common bile duct stone, postop bile leak, bleeding and wound problems. OPERATION AND FINDINGS: DESCRIPTION OF PROCEDURE: The patient was taken to the OR and underwent excellent general endotracheal anesthesia. Her abdomen was prepped and draped in normal sterile fashion. Transverse supraumbilical incision was made and dissection was taken down to identify anterior fascia. Two Vicryls were placed in either side of midline. The midline was incised. A Nila trocar was then inserted. Good pneumoperitoneum was achieved to 15 mmHg pressure. The patient was placed in head up and rolled to the left. An 11 subxiphoid and two 5 lateral ports were placed in normal fashion. Gallbladder was obviously inflamed. There were adhesions which were taken down with blunt and sharp dissection. Her duodenum was also stuck with adhesions up to the gallbladder. These were all taken down with sharp and blunt dissection. Once this was done, the neck was then grasped and retracted laterally after the fundus was grasped and retracted superiorly. The peritoneal attachments were taken down with alternating blunt and sharp dissection. The cystic duct and cystic artery were identified and skeletonized. There was also a posterior branch of the artery which was identified. Once the medial and lateral window was created showing these structures going straight to the gallbladder, 2 clips were placed proximally in the cystic artery, 1 distally on the cystic artery and cystic artery was transected. Three clips were then placed proximally in the cystic duct and 1 distally in the cystic duct and cystic duct was transected. Electrocautery hook was then used to remove the gallbladder from gallbladder fossa. The gallbladder had a large stone which was impacted in the neck. This was sent for pathologic evaluation. Pneumoperitoneum was reestablished. The abdomen was irrigated out and suctioned clear. There was about 20 mL of blood loss. There were some raw areas on the gallbladder fossa which were cauterized. These were all controlled prior to terminating the procedure. Her clips were well placed in the duct and the artery. Once this was ensured, the ports removed and pneumoperitoneum was decompressed. 0 Vicryl was used to close the fascial defects. 0.5% Marcaine with epinephrine local was used to create a local field block. A 0 Vicryl was used to close the skin and subQ with interrupted subcuticular sutures. Steri-Strips and benzoin were used to reinforce the incision. Sterile dressings were applied. The patient tolerated the procedure well without any complications, sent to postop recovery area for a period of observation and be sent to floor for the rest of her care. I attest to the content of the Intraoperative Record and any orders documented therein. Any exceptio ns are noted below.
--- NOTE | 2016-12-24 14:36 | Anesthesiology Progress Note ---
Anesthesia Post Op Note Date & Time Dec 24, 2016 at 14:36 Vital Signs Pain Intensity: 0.0 Vital Signs Past 12 Hours Date Time Temp Pulse Resp B/P Pulse Ox O2 Delivery O2 Flow Rate FiO2 12/24/16 07:54 Room Air 12/24/16 07:02 36.5 76 17 131/81 94 Notes Mental Status: alert / awake / arousable, participated in evaluation Pt Amnestic to Procedure: Yes Nausea / Vomiting: adequately controlled Pain: adequately controlled Airway Patency, RR, SpO2: stable & adequate BP & HR: stable & adequate Hydration State: stable & adequate Anesthetic Complications: no major complications apparent
[2016-12-24] MEDS ORDERED: MoRPHine SULFATE 4 MG/ML 1 ML CARP\\VIAL IV PRN (14:45)
[2016-12-24] MEDS: MoRPHine SULFATE 2 MG/ML CARP IV PRN ×2 (15:25→17:30)
--- NOTE | 2016-12-24 17:37 | Progress Note ---
Medicine Progress Note Date & Time of Visit: Dec 24, 2016 at 17:21. Subjective Patient seen and examined. Some post-operative pain, controlled with current pain regimen. Also notes some neck and back stiffness after surgery. Objective Last 8 Hrs Date Time Temp Pulse Resp B/P Pulse Ox O2 Delivery O2 Flow Rate FiO2 12/24/16 17:14 36.8 77 16 162/82 96 Nasal Cannula 2.0 12/24/16 15:44 36.6 70 17 148/83 98 Nasal Cannula 3.0 12/24/16 15:30 36.6 64 17 151/79 98 Nasal Cannula 3.0 12/24/16 15:00 36.6 71 16 160/83 99 Nasal Cannula 4 12/24/16 14:50 67 16 158/86 98 Mask 5 12/24/16 14:40 75 16 151/81 98 Mask 10 12/24/16 14:30 76 16 153/81 98 Mask 10 12/24/16 14:28 36.5 92 10 135/78 95 Mask 10 Physical Exam: General-awake; alert; NAD Eyes-EOMI; no scleral icterus Neck-no stridor; trachea midline Lungs-CTA bilaterally anteriorly Heart-RRR; no m/r/g Abdomen-soft; hypoactive BS; surgical site c/d/i Extremities-no c/c/e; no deformity Neuro-no gross focal deficits Laboratory Results: Last 24 Hours Test 12/23/16 18:13 12/23/16 20:54 12/24/16 06:54 White Blood Count 11.42 K/uL 6.86 K/uL Red Blood Count 4.72 M/uL 4.12 M/uL Hemoglobin 15.3 g/dL 12.9 g/dL Hematocrit 42.6 % 37.3 % Mean Corpuscular Volume 90.3 fL 90.5 fL Mean Corpuscular Hemoglobin 32.4 pg 31.3 pg Mean Corpuscular Hemoglobin Concent 35.9 g/dl 34.6 g/dl Platelet Count 211 K/uL 192 K/uL Mean Platelet Volume 9.3 fL 9.4 fL Neutrophils (%) (Auto) 82.6 % Lymphocytes (%) (Auto) 12.4 % Monocytes (%) (Auto) 3.5 % Eosinophils (%) (Auto) 0.9 % Basophils (%) (Auto) 0.4 % Neutrophils # (Auto) 9.44 K/uL Lymphocytes # (Auto) 1.42 K/uL Monocytes # (Auto) 0.40 K/uL Eosinophils # (Auto) 0.10 K/uL Basophils # (Auto) 0.04 K/uL RDW Standard Deviation 41.3 fL 41.5 fL RDW Coefficient of Variation 12.4 % 12.6 % Immature Granulocyte % (Auto) 0.2 % Immature Granulocyte # (Auto) 0.02 K/uL Sodium Level 140 mmol/L 145 mmol/L Potassium Level 3.4 mmol/L 3.9 mmol/L Chloride Level 102 mmol/L 108 mmol/L Carbon Dioxide Level 27 mmol/L 28 mmol/L Anion Gap 11.0 mmol/L 9.0 mmol/L Blood Urea Nitrogen 16 mg/dl 11 mg/dl Creatinine 1.00 mg/dl 0.90 mg/dl Est Creatinine Clear Calc Drug Dose 53.6 ml/min 59.6 ml/min Estimated GFR () 65.6 74.6 Estimated GFR (Non- 56.6 64.3 BUN/Creatinine Ratio 15.6 12.6 Random Glucose 174 mg/dl 88 mg/dl Calcium Level 8.9 mg/dl 8.3 mg/dl Total Bilirubin 0.5 mg/dl Direct Bilirubin 0.1 mg/dl Aspartate Amino Transf (AST/SGOT) 20 U/L Alanine Aminotransferase (ALT/SGPT) 29 U/L Alkaline Phosphatase 58 U/L Troponin I < 0.015 ng/ml Total Protein 7.5 gm/dl Albumin 3.9 gm/dl Lipase 166 U/L Prothrombin Time 10.9 SECONDS Prothromb Time International Ratio 1.0 Activated Partial Thromboplast Time 25.0 SECONDS Partial Thromboplastin Ratio 1.0 Magnesium Level 2.0 mg/dl Assessment & Plan ACUTE CHOLECYSTITIS Gallbladder US shows acute cholecystitis with multiple gallstones with impacted stone in gallbladder neck CT a/p- Cholelithiasis with associated acute cholecystitis, Colonic diverticulosis, No bowel wall thickening or obstruction, Mild hepatic steatosis. Given dose of Zosyn in ER Will continue antibiotics with Cipro and Flagyl. Will d/w surgery possibly discontinuing tomorrow. IV fluids Pain control with PRN acetaminophen, PRN morphine Consulted general surgery S/p laparoscopic cholecystectomy 12/24/16 HYPOKALEMIA Resolved HYPERTENSION BP is stable Hold HCTZ Resume losartan HYPERLIPIDEMIA Hold statin for now HYPOTHYROIDISM Resume levothyroxine FIBROMYALGIA Resume doxepin and sertraline CKD STAGE III Creatinine is stable Monitor renal function Avoid nephrotoxins DVT PROPHYLAXIS SCD's DISPOSITION Follows with Dr. Tejada for primary care Consultants: General surgery Procedures: Gallbladder ultrasound 1. Gallbladder wall thickening with multiple gallstones. There appears to be an impacted stone within the neck of the gallbladder. These fibers are consistent with acute cholecystitis. 2. Mild hepatic steatosis. CT a/p 1. Cholelithiasis with associated acute cholecystitis. 2. Colonic diverticulosis. 3. No bowel wall thickening or obstruction. 4. Mild hepatic steatosis. Current Inpatient Medications: Current Inpatient Medications Medications (Trade) Dose Ordered Sig/Cira Route Start Time Stop Time Status Last Admin Dose Admin Ioversol (Optiray 320) 111 ml UD PRN IV 12/23/16 17:15 12/27/16 17:14 Acetaminophen (Tylenol Tab) 650 mg Q4H PRN PO 12/23/16 21:30 01/22/17 21:29 Ondansetron HCl 4 mg 4 mg Q6H PRN IV 12/23/16 21:30 01/22/17 21:29 Potassium Chloride/Sodium Chloride 1,000 ml @ 100 mls/hr Q10H IV 12/23/16 22:30 01/22/17 22:29 12/24/16 09:10 100 MLS/HR Ciprofloxacin/ Dextrose 400 mg/ Prmx 200 ml @ 100 mls/hr Q12H IV 12/24/16 00:00 01/03/17 00:00 12/24/16 11:14 100 MLS/HR Metronidazole 500 mg/Prmx 100 ml @ 100 mls/hr Q8H IV 12/23/16 22:30 01/02/17 22:29 12/24/16 06:10 100 MLS/HR Pantoprazole Sodium/Syringe (Protonix Inj/ Syringe) 10 ml @ 5 mls/min DAILY@11 IV 12/24/16 11:00 01/23/17 10:59 12/24/16 11:14 5 MLS/MIN Morphine Sulfate (MoRPHine SULFATE INJ) 2 mg Q1H PRN IV 12/24/16 14:30 01/07/17 14:29 12/24/16 15:25 2 MG Ondansetron HCl (Zofran Inj) 4 mg Q6H PRN IV 12/24/16 14:30 01/23/17 14:29 Oxycodone/ Acetaminophen (Percocet 5-325mg Tab) @ Q4H PRN PO 12/24/16 14:30 01/07/17 14:29 Morphine Sulfate (MoRPHine SULFATE INJ) 4 mg Q1H PRN IV 12/24/16 14:45 01/07/17 14:44
[2016-12-24] MEDS: DOXEPIN HCL 50 MG CAP PO SCH (21:22)
[2016-12-24] MEDS: SERTRALINE HCL 50 MG TAB PO SCH (21:22)
[2016-12-25] VITALS (7 sets, daily range): BP systolic 106–143; BP diastolic 54–83; PULSE 64–81; TEMP 36.6–37; O2SAT 91–93
[2016-12-25] MEDS: CIPROFLOXACIN / D5W 400 MG in PREMIXED IN D5W 200 ML IV SCH ×3 (00:01→23:18)
[2016-12-25] MEDS: NSS + 20MEQ KCL 1000ML 1,000 ML IV SCH (05:00)
[2016-12-25] MEDS: METRONIDAZOLE / NSS 500 MG in PREMIXED NSS 100 ML IV SCH ×3 (06:00→21:48)
[2016-12-25] MEDS: LEVOTHYROXINE 125 MCG TAB PO SCH (06:00)
[2016-12-25 06:40] LABS: HEMATOCRIT 34.8 % (37-47); MEAN CELL VOLUME 91.6 fL (80-100); MEAN CORPUSCULAR HEMOGLOBIN 32.1 pg (25-34); MEAN CORPUSCULAR HGB CONC 35.1 g/dl (32-36); MEAN PLATELET VOLUME 9.6 fL (7.4-10.4); PLATELET COUNT 187 K/uL (130-400)
[2016-12-25 07:13] LABS: BUN/CREATININE RATIO 10.6 (10-20); CALCIUM 8.3 mg/dl (8.5-10.1); CREATININE 0.88 mg/dl (0.60-1.20); POTASSIUM 4.1 mmol/L (3.5-5.1)
[2016-12-25] MEDS: PANTOprazole SOD 40 MG TAB PO SCH (08:40)
[2016-12-25] MEDS: LOSARTAN POTASSIUM 50 MG TAB PO SCH (08:41)
[2016-12-25] MEDS ORDERED: LEVOTHYROXINE 125 MCG TAB PO SCH (09:00)
[2016-12-25] MEDS ORDERED: OXYC-57 PO (10:28)
--- NOTE | 2016-12-25 10:29 | Discharge Instructions ---
Discharge Instructions Admission Reason for Admission: Acute Cholecystitis Discharge Discharge Diagnosis / Problem: acute cholecystitis Discharge Goals Goal(s): Therapeutic intervention Activity Recommendations Activity Limitations: per Instructions/Follow-up section Lifting Limitations: no more than 25 pounds Exercise/Sports Limitations: until after follow-up appointment May Resume Sexual Activity: after follow-up appointment Shower/Bathe: tomorrow Driving or Machine Use: resume 3 days after discharge (as long as not taking narcotics) . Current Hospital Diet Patient's current hospital diet: Low Fiber Diet Discharge Diet Recommended Diet: Regular Diet Procedures Procedures Performed: Laparoscopic Cholecystectomy Pending Studies Studies pending at discharge: no Work Instructions Return To Work: after follow-up Lifting Limitations: no more than 20 pounds Medical Emergencies . Who to Call and When: Medical Emergencies: If at any time you feel your situation is an emergency, please call 911 immediately. . Non-Emergent Contact Non-Emergency issues call your: Primary Care Provider Call Non-Emergent contact if: temperature is above 101.5, your pain is worsening, your pain is concerning you, wound has increased pain . "Provider Documentation" section prepared by Denny Salazar. VTE Core Measure Inpt VTE Proph given/why not?: SCD's [place] Drug Monitoring Program Search Results: patient reviewed within database
--- NOTE | 2016-12-25 10:47 | Surgery Progress Note ---
Surgery Progress Note Date of Service Dec 25, 2016. Subjective Post OP Day: 1 + ambulating (not well), + complaints (flushing of face), + diet (not taken much yet), + feeling well, + pain controlled, No bowel movement, No flatus, No nausea, No vomiting Objective Vital Signs: Date Time Temp Pulse Resp B/P Pulse Ox O2 Delivery O2 Flow Rate FiO2 12/25/16 07:37 Room Air 12/25/16 06:53 36.6 64 16 121/70 91 Room Air 12/25/16 03:15 36.7 72 14 106/60 92 Room Air 12/25/16 00:00 93 Room Air 12/24/16 22:50 36.7 74 16 134/69 96 Nasal Cannula 1.0 12/24/16 20:30 36.8 77 16 121/68 92 Room Air 12/24/16 18:45 36.8 87 15 148/76 92 Room Air 12/24/16 17:14 36.8 77 16 162/82 96 Nasal Cannula 2.0 12/24/16 15:50 98 Nasal Cannula 3.0 12/24/16 15:50 98 Nasal Cannula 3.0 12/24/16 15:44 36.6 70 17 148/83 98 Nasal Cannula 3.0 12/24/16 15:30 36.6 64 17 151/79 98 Nasal Cannula 3.0 12/24/16 15:00 36.6 71 16 160/83 99 Nasal Cannula 4 12/24/16 14:50 67 16 158/86 98 Mask 5 12/24/16 14:40 75 16 151/81 98 Mask 10 12/24/16 14:30 76 16 153/81 98 Mask 10 12/24/16 14:28 36.5 92 10 135/78 95 Mask 10 General Appearance: WD/WN, no apparent distress Head: normocephalic, atraumatic Neck: supple, trachea midline Respiratory/Chest: lungs clear Cardiovascular: regular rate, rhythm Abdomen: soft, + distended, + tenderness (moderate post-op) Incision(s): dry, intact Extremities: non-tender, no pedal edema Laboratory Results: Results Past 24 Hours Test 12/25/16 06:15 Range/Units White Blood Count 10.60 4.8-10.8 K/uL Red Blood Count 3.80 4.2-5.4 M/uL Hemoglobin 12.2 12.0-16.0 g/dL Hematocrit 34.8 37-47 % Mean Corpuscular Volume 91.6 80-100 fL Mean Corpuscular Hemoglobin 32.1 25-34 pg Mean Corpuscular Hemoglobin Concent 35.1 32-36 g/dl RDW Standard Deviation 42.2 36.4-46.3 fL RDW Coefficient of Variation 12.6 11.5-14.5 % Platelet Count 187 130-400 K/uL Mean Platelet Volume 9.6 7.4-10.4 fL Sodium Level 143 136-145 mmol/L Potassium Level 4.1 3.5-5.1 mmol/L Chloride Level 109 98-107 mmol/L Carbon Dioxide Level 26 21-32 mmol/L Anion Gap 8.0 3-11 mmol/L Blood Urea Nitrogen 9 7-18 mg/dl Creatinine 0.88 0.60-1.20 mg/dl Est Creatinine Clear Calc Drug Dose 60.9 ml/min Estimated GFR () 76.6 Estimated GFR (Non- 66.1 BUN/Creatinine Ratio 10.6 10-20 Random Glucose 97 70-99 mg/dl Calcium Level 8.3 8.5-10.1 mg/dl Magnesium Level 2.0 1.8-2.4 mg/dl Assessment & Plan Acute cholecystitis -con't IV abx -slow to recover, needs to ambulate/take po better -H/H low likely dilutional and some OR loss -likely home in AM if does well today
--- NOTE | 2016-12-25 17:41 | Progress Note ---
Medicine Progress Note Date & Time of Visit: Dec 25, 2016 at 17:35. Subjective Patient seen and examined. Tolerating diet. Pain controlled. Ambulated hallway. Objective Last 8 Hrs Date Time Temp Pulse Resp B/P Pulse Ox O2 Delivery O2 Flow Rate FiO2 12/25/16 16:14 37.0 77 18 106/54 92 Room Air 12/25/16 16:01 92 Room Air 12/25/16 11:11 36.7 68 16 143/83 92 Room Air Physical Exam: General-awake; alert; NAD Eyes-EOMI; no scleral icterus Neck-no stridor; trachea midline Lungs-CTA bilaterally anteriorly Heart-RRR; no m/r/g Abdomen-soft; nBS; surgical site c/d/i Extremities-no c/c/e; no deformity Neuro-no gross focal deficits Laboratory Results: Last 24 Hours Test 12/25/16 06:15 White Blood Count 10.60 K/uL Red Blood Count 3.80 M/uL Hemoglobin 12.2 g/dL Hematocrit 34.8 % Mean Corpuscular Volume 91.6 fL Mean Corpuscular Hemoglobin 32.1 pg Mean Corpuscular Hemoglobin Concent 35.1 g/dl RDW Standard Deviation 42.2 fL RDW Coefficient of Variation 12.6 % Platelet Count 187 K/uL Mean Platelet Volume 9.6 fL Sodium Level 143 mmol/L Potassium Level 4.1 mmol/L Chloride Level 109 mmol/L Carbon Dioxide Level 26 mmol/L Anion Gap 8.0 mmol/L Blood Urea Nitrogen 9 mg/dl Creatinine 0.88 mg/dl Est Creatinine Clear Calc Drug Dose 60.9 ml/min Estimated GFR () 76.6 Estimated GFR (Non- 66.1 BUN/Creatinine Ratio 10.6 Random Glucose 97 mg/dl Calcium Level 8.3 mg/dl Magnesium Level 2.0 mg/dl Assessment & Plan ACUTE CHOLECYSTITIS Gallbladder US shows acute cholecystitis with multiple gallstones with impacted stone in gallbladder neck CT a/p- Cholelithiasis with associated acute cholecystitis, Colonic diverticulosis, No bowel wall thickening or obstruction, Mild hepatic steatosis. Given dose of Zosyn in ER Continue antibiotics with Cipro and Flagyl Pain control with PRN acetaminophen, PRN morphine Consulted general surgery S/p laparoscopic cholecystectomy 12/24/16 HYPOKALEMIA Resolved HYPERTENSION BP is stable Restart HCTZ tomorrow Resumed losartan HYPERLIPIDEMIA Resume statin HYPOTHYROIDISM Resumed levothyroxine FIBROMYALGIA Resumed doxepin and sertraline CKD STAGE III Creatinine is stable Monitor renal function Avoid nephrotoxins DVT PROPHYLAXIS SCD's DISPOSITION Follows with Dr. Tejada for primary care Anticipate discharge tomorrow. Consultants: General surgery Procedures: Gallbladder ultrasound 1. Gallbladder wall thickening with multiple gallstones. There appears to be an impacted stone within the neck of the gallbladder. These fibers are consistent with acute cholecystitis. 2. Mild hepatic steatosis. CT a/p 1. Cholelithiasis with associated acute cholecystitis. 2. Colonic diverticulosis. 3. No bowel wall thickening or obstruction. 4. Mild hepatic steatosis. Current Inpatient Medications: Current Inpatient Medications Medications (Trade) Dose Ordered Sig/Cira Route Start Time Stop Time Status Last Admin Dose Admin Ioversol (Optiray 320) 111 ml UD PRN IV 12/23/16 17:15 12/27/16 17:14 Acetaminophen 650 mg 650 mg Q4H PRN PO 12/23/16 21:30 01/22/17 21:29 12/25/16 05:00 650 MG Ciprofloxacin/ Dextrose 400 mg/ Prmx 200 ml @ 100 mls/hr Q12H IV 12/24/16 00:00 01/03/17 00:00 12/25/16 12:16 100 MLS/HR Metronidazole/Prmx (Flagyl / Nss/ Premixed Nss) 100 ml @ 100 mls/hr Q8H IV 12/23/16 22:30 01/02/17 22:29 12/25/16 14:10 100 MLS/HR Morphine Sulfate (MoRPHine SULFATE INJ) 2 mg Q1H PRN IV 12/24/16 14:30 01/07/17 14:29 12/24/16 17:30 2 MG Ondansetron HCl (Zofran Inj) 4 mg Q6H PRN IV 12/24/16 14:30 01/23/17 14:29 Oxycodone/ Acetaminophen (Percocet 5-325mg Tab) @ Q4H PRN PO 12/24/16 14:30 01/07/17 14:29 Morphine Sulfate (MoRPHine SULFATE INJ) 4 mg Q1H PRN IV 12/24/16 14:45 01/07/17 14:44 Doxepin HCl (Sinequan Cap) 50 mg HS PO 12/24/16 21:00 01/23/17 20:59 12/24/16 21:22 50 MG Losartan Potassium (coZAAR TAB) 100 mg QAM PO 12/25/16 09:00 01/24/17 08:59 12/25/16 08:41 100 MG Sertraline HCl (Zoloft Tab) 50 mg HS PO 12/24/16 21:00 01/23/17 20:59 12/24/16 21:22 50 MG Levothyroxine Sodium (Synthroid Tab) 62.5 mcg DAILYBB PO 12/25/16 06:00 01/24/17 05:59 12/25/16 06:00 62.5 MCG Pantoprazole Sodium (Protonix Tab) 40 mg QAM PO 12/25/16 09:30 01/24/17 09:29 12/25/16 08:40 40 MG
[2016-12-25] MEDS ORDERED: ATORVASTATIN 20 MG TAB PO SCH (17:45)
[2016-12-25] MEDS: SERTRALINE HCL 50 MG TAB PO SCH (20:38)
[2016-12-25] MEDS: DOXEPIN HCL 50 MG CAP PO SCH (20:38)
--- NOTE | 2016-12-26 05:26 | Surgery Progress Note ---
Surgery Progress Note Date of Service Dec 26, 2016. Subjective Post OP Day: 2 + diet (regular), + feeling well, + flatus, + pain controlled, No nausea, No vomiting Objective Vital Signs: Date Time Temp Pulse Resp B/P Pulse Ox O2 Delivery O2 Flow Rate FiO2 12/25/16 23:15 Room Air 12/25/16 22:52 36.7 81 16 138/70 91 Room Air 12/25/16 16:14 37.0 77 18 106/54 92 Room Air 12/25/16 16:01 92 Room Air 12/25/16 11:11 36.7 68 16 143/83 92 Room Air 12/25/16 07:37 Room Air 12/25/16 06:53 36.6 64 16 121/70 91 Room Air General Appearance: WD/WN, no apparent distress Head: normocephalic, atraumatic Neck: supple, trachea midline Abdomen: normal bowel sounds, non distended, soft, + tenderness Incision(s): dry, intact Extremities: non-tender, no pedal edema Laboratory Results: Results Past 24 Hours Test 12/25/16 06:15 12/26/16 04:44 Range/Units White Blood Count 10.60 4.8-10.8 K/uL Red Blood Count 3.80 4.2-5.4 M/uL Hemoglobin 12.2 12.0-16.0 g/dL Hematocrit 34.8 37-47 % Mean Corpuscular Volume 91.6 80-100 fL Mean Corpuscular Hemoglobin 32.1 25-34 pg Mean Corpuscular Hemoglobin Concent 35.1 32-36 g/dl RDW Standard Deviation 42.2 36.4-46.3 fL RDW Coefficient of Variation 12.6 11.5-14.5 % Platelet Count 187 130-400 K/uL Mean Platelet Volume 9.6 7.4-10.4 fL Sodium Level 143 136-145 mmol/L Potassium Level 4.1 3.5-5.1 mmol/L Chloride Level 109 98-107 mmol/L Carbon Dioxide Level 26 21-32 mmol/L Anion Gap 8.0 3-11 mmol/L Blood Urea Nitrogen 9 7-18 mg/dl Creatinine 0.88 0.60-1.20 mg/dl Est Creatinine Clear Calc Drug Dose 60.9 ml/min Estimated GFR () 76.6 Estimated GFR (Non- 66.1 BUN/Creatinine Ratio 10.6 10-20 Random Glucose 97 70-99 mg/dl Calcium Level 8.3 8.5-10.1 mg/dl Magnesium Level 2.0 1.8-2.4 mg/dl Assessment & Plan Acute cholecystitis -victor hugo need for po abx at home -doing better this AM -home today if medically ready -instructions and Rx on chart
[2016-12-26] MEDS: METRONIDAZOLE / NSS 500 MG in PREMIXED NSS 100 ML IV SCH (05:50)
[2016-12-26] MEDS: LEVOTHYROXINE 125 MCG TAB PO SCH (05:51)
[2016-12-26 06:42] LABS: HEMATOCRIT 34.1 % (37-47); MEAN CELL VOLUME 92.4 fL (80-100); MEAN CORPUSCULAR HEMOGLOBIN 31.4 pg (25-34); MEAN PLATELET VOLUME 9.3 fL (7.4-10.4); PLATELET COUNT 163 K/uL (130-400); RED BLOOD COUNT 3.69 M/uL (4.2-5.4); WHITE BLOOD COUNT 7.48 K/uL (4.8-10.8)
[2016-12-26 06:59] LABS: BUN/CREATININE RATIO 12.7 (10-20); CALCIUM 8.1 mg/dl (8.5-10.1); POTASSIUM 3.8 mmol/L (3.5-5.1)
[2016-12-26 07:29] VITALS: BP 132/74; PULSE 75; TEMP 36.8; O2SAT 90
[2016-12-26] MEDS: LOSARTAN POTASSIUM 50 MG TAB PO SCH (08:38)
[2016-12-26] MEDS ORDERED: HYDROCHLOROTHIAZIDE 25 MG TAB PO SCH (09:00)
[2016-12-26] MEDS: PANTOprazole SOD 40 MG TAB PO SCH (09:24)
[2016-12-26 10:09] VITALS: BP 132/74; PULSE 75; TEMP 36.8; O2SAT 90
--- NOTE | 2016-12-26 19:52 | Discharge Summary ---
Discharge Summary Admission Date: Dec 23, 2016 at 21:16 Discharge Date: Dec 26, 2016 Discharge Disposition: Home Principal Diagnosis: Acute cholecystitis s/p cholecystectomy Procedures: Gallbladder ultrasound 1. Gallbladder wall thickening with multiple gallstones. There appears to be an impacted stone within the neck of the gallbladder. These fibers are consistent with acute cholecystitis. 2. Mild hepatic steatosis. CT a/p 1. Cholelithiasis with associated acute cholecystitis. 2. Colonic diverticulosis. 3. No bowel wall thickening or obstruction. 4. Mild hepatic steatosis. Consultations: General surgery Medication Reconciliation New Medications: Oxycodone/Acetaminophen 5MG/325MG (Percocet 5MG/325MG) Tab 1 TABLET PO Q6H PRN for Pain, #30 TAB Continued Medications: Atorvastatin (Atorvastatin Calcium) 20 Mg Tab 20 MG PO Q2D Calcium Carbonate-Vitamin D (Calcium + D) 1 Tab Tab 1 TAB PO BID Doxepin (Sinequan) 25 Mg Cap 50 MG PO HS, CAP Xihcpqflmcs-Kwwvjajssrb-Sos C- (Glucosamine 1500 Complex) 1 Cap Cap 1 CAP PO QAM Hydrochlorothiazide (Hydrochlorothiazide) 12.5 Mg Tab 12.5 MG PO QAM Levothyroxine Sodium (Levothyroxine Sodium) 125 Mcg Tab 62.5 MG PO QAM Loratadine (Claritin) 10 Mg Tab 10 MG PO DAILY PRN for ALLERGIC REACTION, TAB Losartan Potassium (Cozaar) 100 Mg Tab 100 MG PO QAM, TAB Omeprazole (Prilosec) 20 Mg Cap 20 MG PO DAILY PRN for Dyspepsia, CAP Sertraline (Zoloft) 50 Mg Tab 50 MG PO HS, TAB Triamcinolone Acetonide (Nasal (Nasacort Allergy 24Hr) 55 Mcg/Act Spr 2 SPRAY CHUNG DAILY PRN for Nasal Congestion Discontinued Medications: Ibuprofen (Advil) 200 Mg Tab 400-600 MG PO BID PRN for Pain, TAB Admission Information HPI (per Admitting provider): This is a 71 year old female with PMH of HTN, dyslipidemia, hypothyroidism, CKD stage III, fibromyalgia, who was sent to the ED from Dr. Tejada's office for abdominal pain. Patient states yesterday she had soreness in her back during the day. Heat application did not help. Then at 10:30 pm yesterday she had sudden onset of abdominal pain. She describes cramping across the right and left upper quadrants with band like radiation to her back. She states pain was constant. She tried omeprazole with no relief. Patient was seen by Dr. Tejada in the afternoon and was sent to the ER. She last ate (cereal) at 8:30 am but had no appetite after that. Her mouth is feeling dry. Her pain was treated with acetaminophen in ER and is now controlled. She reports a normal BM this morning. he denies fevers, chills, cough, chest pain, SOB, nausea, vomiting, diarrhea, dysuria, frequency. No hx of abdominal surgery. Physical Exam (per Admitting): General Appearance: no apparent distress, + obese, + pertinent finding ( pleasant alert 71 year old female, lying in bed) Head: normocephalic, atraumatic Eyes: normal inspection, PERRL, EOMI ENT: hearing grossly normal, pharynx normal Neck: supple, trachea midline Respiratory/Chest: lungs clear, normal breath sounds, no respiratory distress, no accessory muscle use Cardiovascular: regular rate, rhythm, no murmur Abdomen/GI: normal bowel sounds, soft, + pertinent finding (tender in RUQ, Nixon's sign positive) Extremities/Musculoskelatal: normal inspection, no pedal edema Neurologic/Psych: alert, normal mood/affect, oriented x 3, + pertinent finding (grossly nonfocal ) Skin: normal color, warm/dry Hospital Course Patient was admitted with acute cholecystitis, confirmed with imaging. General surgery was consulted. Patient received IV ciprofloxacin and metronidazole. Patient underwent laparoscopic cholecystectomy on 12/24/16. Patient tolerated surgery well without complications. Patient was continued on her home medications. Patient deemed stable for discharge with Family Medicine follow up. PE on discharge: General- awake; alert; NAD Eyes- EOMI; no scleral icterus Neck- no stridor; trachea midline Lungs- CTA bilaterally; no wheezes/crackles Heart- RRR; no m/r/g Abdomen- soft; mildly tender around surgical incision sites; surgical incision sites with steri strips c/d/i; nBS Back- no gross abnormalities Extremities- no c/c/e; no deformity Neuro- no gross focal deficits Skin- no appreciable rash . Total time spent on discharge = This includes examination of the patient, discharge planning, medication reconciliation, and communication with other providers. Discharge Instructions Discharge Instructions Admission Reason for Admission: Acute Cholecystitis Discharge Discharge Diagnosis / Problem: acute cholecystitis Discharge Goals Goal(s): Therapeutic intervention Activity Recommendations Activity Limitations: per Instructions/Follow-up section Lifting Limitations: no more than 25 pounds Exercise/Sports Limitations: until after follow-up appointment May Resume Sexual Activity: after follow-up appointment Shower/Bathe: tomorrow Driving or Machine Use: resume 3 days after discharge (as long as not taking narcotics) . Current Hospital Diet Patient's current hospital diet: Low Fiber Diet Discharge Diet Recommended Diet: Regular Diet Procedures Procedures Performed: Laparoscopic Cholecystectomy Pending Studies Studies pending at discharge: no Work Instructions Return To Work: after follow-up Lifting Limitations: no more than 20 pounds Medical Emergencies . Who to Call and When: Medical Emergencies: If at any time you feel your situation is an emergency, please call 911 immediately. . Non-Emergent Contact Non-Emergency issues call your: Primary Care Provider Call Non-Emergent contact if: temperature is above 101.5, your pain is worsening, your pain is concerning you, wound has increased pain . "Provider Documentation" section prepared by Denny Salazar. VTE Core Measure Inpt VTE Proph given/why not?: [facility] [place] Drug Monitoring Program Search Results: patient reviewed within database <Electronically signed by Denny Salazar M.D.> Signed: 12/25/16 1029 Signed: The status of this report is Signed * If report status is Draft, the document has not been finalized by the responsible provider. Addendum: 12/26/16 1005 Addendum: Lian Nunez MD on 12/26/16 @ 10:04 Discharge Inst - Addendum Addendum Notes: Please follow up with Family Medicine Dr. Tejada on December 28 at 1:50pm. Additional Copies To Fernie Tejada III, M.D.
[2016-12-27] MEDS ORDERED: ATORVASTATIN 20 MG TAB PO SCH (18:00)
== END 2016-12-26 11:34 | disposition home or self-care (01) | DRG 419 ==
LOC: ENRESERVTM → ENRESERVDT → C.EDB 16:25 → C.MSN 21:16
PROVIDERS: ADMIT Hospitalist; ATTEND Internal Medicine
PROC: 0FT44ZZ Resection of Gallbladder, Percutaneous Endoscopic Approach (ICD-10-PCS; principal; 2016-12-24 12:00)
DX: K80.01 Calculus of gallbladder with acute cholecystitis with obstruction (principal); E87.6 Hypokalemia; E78.5 Hyperlipidemia, unspecified; E03.9 Hypothyroidism, unspecified; M79.7 Fibromyalgia; N18.3 Chronic kidney disease, stage 3 (moderate); I12.9 Hypertensive chronic kidney disease with stage 1 through stage 4 chronic kidney disease, or unspecified chronic kidney disease; Z79.899 Other long term (current) drug therapy; Z82.49 Family history of ischemic heart disease and other diseases of the circulatory system

== ENCOUNTER → 2017-06-14 | Outpatient (CLI) | payer OTHER ==
[~2017-06-14] MED LIST changes: -ASPEC325 PO; +CLR10 PO; -IBUP-1050 PO; +OMEP20CA9 PO; +OXYC-57 PO; +TRIA1SPR4 NAE
--- NOTE | 2017-06-14 15:43 | MAMMOGRAPHY REPORT ---
BILATERAL DIGITAL SCREENING MAMMOGRAM WITH CAD: 06/14/2017 CLINICAL HISTORY: Routine screening. Patient has no complaints. TECHNIQUE: Bilateral CC and MLO views were obtained. Current study was also evaluated with a Compute r Aided Detection (CAD) system. COMPARISON: Comparison is made to exams dated: 06/13/2016 mammogram, 06/10/2015 mammogram, 06/16/2014 m ammogram, 06/16/2014 ultrasound, 06/09/2014 mammogram, and 06/06/2013 mammogram - [facility]. BREAST COMPOSITION: There are scattered areas of fibroglandular density in both breasts. FINDINGS: There are mild to moderate vascular calcifications in the breasts. No suspicious mass, arc hitectural distortion or cluster of microcalcifications is seen. IMPRESSION: ACR BI-RADS CATEGORY 1: NEGATIVE There is no mammographic evidence of malignancy. A 1 year screening mammogram is recommended. The pa tient will receive written notification of the results. Approximately 10% of breast cancers are not detected with mammography. A negative mammographic report should not delay biopsy if a clinically suggestive mass is present. Summer Mcpherson M.D. ay/:06/14/2017 14:45:46 Coat Joiner: aJnneth VALDES(R)(M), [facility] letter sent: Normal 1/2 BI-RADS Code: ACR BI-RADS Category 1: Negative
== END | disposition home or self-care (01) ==
LOC: C.MAMM 11:15
PROVIDERS: ATTEND Obstetrics & Gynecology
DX: Z12.31 Encounter for screening mammogram for malignant neoplasm of breast (principal)

== ENCOUNTER → 2018-06-15 | Outpatient (CLI) | payer OTHER ==
[~2018-06-15] MED LIST changes: -LEVO125T4 PO; +LEVO125T5 PO; -LPT/20 PO; +LPT20 PO; -OXYC-57 PO
--- NOTE | 2018-06-18 07:43 | MAMMOGRAPHY REPORT ---
BILATERAL DIGITAL SCREENING MAMMOGRAM TOMOSYNTHESIS WITH CAD: 06/15/2018 CLINICAL HISTORY: Routine screening. Patient has no complaints. TECHNIQUE: The study was acquired using full field digital technology and interpreted from soft copy. Breast tomosynthesis in addition to standard 2D mammography was performed. Current study was also ev aluated with a Computer Aided Detection (CAD) system. COMPARISON: Comparison is made to exams dated: 06/14/2017 mammogram, 06/13/2016 mammogram, 06/10/2015 m ammogram, 06/16/2014 mammogram, 06/09/2014 mammogram, and 06/06/2013 mammogram - [facility]. BREAST COMPOSITION: There are scattered areas of fibroglandular density in both breasts. FINDINGS: No suspicious masses, calcifications, or areas of architectural distortion are noted in either breast . There has been no significant interval change compared to prior exams. IMPRESSION: ACR BI-RADS CATEGORY 1: NEGATIVE There is no mammographic evidence of malignancy. A 1 year screening mammogram is recommended.( 019) The patient will receive written notification of the results. Some breast cancers are not detected with mammography. A negative mammographic report should not connie y biopsy if a clinically suggestive mass is present. Cara Guzman M.D. ah/:06/15/2018 11:57:04 Civil Engineering Professor: RT Marcelino(Devin)(M)(BD), [facility] letter sent: Normal 1/2 BI-RADS Code: ACR BI-RADS Category 1: Negative
== END | disposition home or self-care (01) ==
LOC: C.MAMM 11:01
PROVIDERS: ATTEND Obstetrics & Gynecology
DX: Z12.31 Encounter for screening mammogram for malignant neoplasm of breast (principal)